=== PATIENT | female | born 1970 | race Caucasian/White ===

== ENCOUNTER 2020-12-03 08:59 | Outpatient (CLI) | payer OTHER ==
--- NOTE | 2020-12-03 09:59 | ULT ---
Exam: Pelvic ultrasound HISTORY: Heavy menstrual cycle and worsening anemia. History of endometriosis as well as prior tubal ligation . COMPARISON: None TECHNIQUE: Multiple grayscale and color Doppler images were obtained in a transabdominal pelvic ultra sound. Spectral analysis of the Doppler waveforms of the ovaries were performed. FINDINGS: CERVIX: Not well assessed on this exam but there is evidence of a small nabothian cyst. UTERUS: Heterogeneous mass is seen right aspect body of uterus which measures 3.9 cm. This likely rep resents a uterine fibroid. ENDOMETRIAL STRIPE: Difficult to adequately visualize but measures approximately 1.2 cm which is with in normal limits for a normal menstruating female patient. However, this would be abnormal in a postmenopausal female patient. No fluid or fluid collection is seen in the endometrial canal. No free fluid is present. RIGHT OVARY: Normal flow, without focal mass. LEFT OVARY: Normal flow, without focal mass. IMPRESSION: 1. Findings likely related to a uterine fibroid. 2. Endometrial stripe measures 1.2 cm in thickness. This is within normal limits in a normal menstrua ting female patient but would be abnormal in thickness for a postmenopausal female patient. 3. Normal appearing bilateral ovaries.
== END 2020-12-03 09:00 | disposition home or self-care (01) ==
LOC: BICULT 08:59
PROVIDERS: ATTEND Family Medicine
DX: N92.0 Excessive and frequent menstruation with regular cycle (principal); D64.9 Anemia, unspecified; R93.89 Abnormal findings on diagnostic imaging of other specified body structures
CPT/HCPCS: 76856

== ENCOUNTER 2021-09-30 11:47 | Day surgery (SDC) | payer OTHER ==
[2021-09-30] MEDS ORDERED: Ketamine 50 MG/ML (10ML VIAL) ONE (12:28)
[2021-09-30] MEDS ORDERED: PROPOFOL 200 MG/20 ML VIAL ONE (12:43)
[2021-09-30] MEDS ORDERED: Albuterol Sulfate 1.25 MG/3 ML NEB ONE (13:08)
[2021-09-30] MEDS ORDERED: Albuterol Sulfate 2.5 mg/3 ml Neb ONE (13:09)
== END 2021-09-30 14:28 | disposition home or self-care (01) ==
LOC: SDC 11:47 → EEVIPCON 11:47 → SDC 14:28
PROVIDERS: ATTEND Internal Medicine
PROC: 0D758ZZ Dilation of Esophagus, Via Natural or Artificial Opening Endoscopic (ICD-10-PCS; principal; 2021-09-30)
PROC: 0D778ZZ Dilation of Stomach, Pylorus, Via Natural or Artificial Opening Endoscopic (ICD-10-PCS; principal; 2021-09-30)
PROC: 0DB78ZX Excision of Stomach, Pylorus, Via Natural or Artificial Opening Endoscopic, Diagnostic (ICD-10-PCS; principal; 2021-09-30)
PROC: 0DB68ZX Excision of Stomach, Via Natural or Artificial Opening Endoscopic, Diagnostic (ICD-10-PCS; principal; 2021-09-30)
DX: K29.70 Gastritis, unspecified, without bleeding (principal); K25.9 Gastric ulcer, unspecified as acute or chronic, without hemorrhage or perforation; K29.80 Duodenitis without bleeding; K26.9 Duodenal ulcer, unspecified as acute or chronic, without hemorrhage or perforation; R13.10 Dysphagia, unspecified; R49.0 Dysphonia; J44.9 Chronic obstructive pulmonary disease, unspecified; Z79.51 Long term (current) use of inhaled steroids; Z79.899 Other long term (current) drug therapy
CPT/HCPCS: 88305; 88312; J2704; J7611

== ENCOUNTER → 2022-06-02 | Day surgery (SDC) | payer OTHER ==
[~2022-06-02] MED LIST: Lidocaine 1% (PF) 30 ML VIAL ONE
== END | disposition home or self-care (01) ==
LOC: SDC 07:13
PROVIDERS: ATTEND Internal Medicine
DX: K21.9 Gastro-esophageal reflux disease without esophagitis (principal); R13.10 Dysphagia, unspecified; R49.0 Dysphonia
CPT/HCPCS: 91010; J2001